=== PATIENT | female | born 1975 | race Caucasian/White ===

== ENCOUNTER 2023-11-26 19:49 | Emergency (ER) | payer OTHER ==
[~2023-11-26] VITALS: Ht 149.9 cm; Wt 68.0 kg
[~2023-11-26 19:49] MED LIST: Tamiflu75 MG PO
[2023-11-26 20:04] VITALS: BP 136/82
== END 2023-11-26 21:41 | disposition home or self-care (01) ==
LOC: ER 19:49
DX: S51.011A Laceration without foreign body of right elbow, initial encounter (principal); W10.1XXA Fall (on)(from) sidewalk curb, initial encounter; Z79.899 Other long term (current) drug therapy
CPT/HCPCS: 12001; 99283-25

== ENCOUNTER 2023-11-28 19:34 | Emergency (ER) | payer OTHER ==
[~2023-11-28] VITALS: Ht 149.9 cm; Wt 72.6 kg
[2023-11-28] MEDS ORDERED: FOLI1 PO (19:44)
[2023-11-28] MEDS ORDERED: Lamictal150 MG PO (19:44)
[2023-11-28] MEDS ORDERED: VITAMIN B-1100 M1 PO (19:44)
[2023-11-28] MEDS ORDERED: TRAZ50 PO (19:44)
[2023-11-28 21:00] VITALS: BP 140/83
[2023-11-28] MEDS ORDERED: PHENobarbital Sodium 65MG / ML 1ML Vial IM ONE (22:00)
[2023-11-29] MEDS ORDERED: GABA100 PO (07:58)
[2023-11-29] MEDS ORDERED: FLUO10 PO (07:58)
[2023-11-29] MEDS ORDERED: Naltrexone HCl50 MG (07:59)
[2023-11-29] MEDS ORDERED: ONDA4ODT MM (10:11)
[2023-11-29] MEDS ORDERED: CHLO25 PO (10:11)
== END 2023-11-28 22:35 | disposition home or self-care (01) ==
LOC: ER 19:34
DX: F10.239 Alcohol dependence with withdrawal, unspecified (principal); Z79.899 Other long term (current) drug therapy
CPT/HCPCS: 96372; 99285-25; J2560

== ENCOUNTER 2023-11-29 07:42 | Emergency (ER) | payer OTHER ==
[~2023-11-29] VITALS: Ht 149.9 cm; Wt 68.0 kg
[~2023-11-29 07:42] MED LIST changes: +FOLI1 PO; +Lamictal150 MG PO; +TRAZ50 PO; +VITAMIN B-1100 M1 PO
[2023-11-29] MEDS ORDERED: FLUO10 PO (07:58)
[2023-11-29] MEDS ORDERED: GABA100 PO (07:58)
[2023-11-29] MEDS ORDERED: Naltrexone HCl50 MG (07:59)
[2023-11-29] MEDS ORDERED: Ondansetron HCl 2 MG / ML 2ML Vial IV ONE (08:10)
[2023-11-29 08:24] LABS: BASOPHILS ABSOLUTE AUTO 0.05 K/mm3 (0.00-0.23); BASOPHILS PERCENT AUTO 0 % (0-2); EOSINOPHILS ABSOLUTE AUTO 0.01 K/mm3 (0.00-0.68); EOSINOPHILS PERCENT AUTO 0 % (0-6); Hematocrit 39.8 % (33.0-51.0); Hemoglobin 13.7 g/dL (11.5-16.0); IMMATURE GRAN ABSOLUTE AUTO 0.08 K/mm3 (0.00-0.10); IMMATURE GRAN PERCENT AUTO 1 % (0-1); LYMPHOCYTES ABSOLUTE AUTO 1.43 K/mm3 (0.84-5.20); LYMPHOCYTES PERCENT AUTO 12 % (21-46); MONOCYTES ABSOLUTE AUTO 0.71 K/mm3 (0.16-1.47); MONOCYTES PERCENT AUTO 6 % (4-13); Mean Corpuscular HGB 30.9 pg (26.0-34.0); Mean Corpuscular HGB Conc 34.4 g/dL (31.5-36.5); Mean Corpuscular Volume 90 fL (80-100); Mean Platelet Volume 9.2 fL (9.1-12.4); NEUTROPHILS ABSOLUTE AUTO 9.73 K/mm3 (1.96-9.15); NEUTROPHILS PERCENT AUTO 81 % (41-73); Platelet Count 347 K/mm3 (150-400); RDW Coefficient Variation 13.2 % (11.7-14.2); RDW Standard Deviation 44.2 fL (35.1-46.3); Red Blood Cell Count 4.43 M/mm3 (3.80-5.20); White Blood Cell Count 12.01 K/mm3 (4.00-11.30)
[2023-11-29] MEDS ORDERED: LORazepam 2 MG/ML 1ML Injection IV ONE (08:30)
[2023-11-29] MEDS ORDERED: Prochlorperazine Edisylate 10 mg Vial IV ONE (08:30)
[2023-11-29] MEDS ORDERED: NS 1,000 ML IV SCH (08:30)
[2023-11-29 08:44] LABS: Albumin, Blood 3.6 g/dL (3.4-5.0); Albumin/Globulin Ratio 0.9 (0.8-1.8); Bun/Creatinine Ratio 21.5 (12.0-20.0); Calcium, Blood 9.3 mg/dL (8.5-10.1); Creatinine, Blood 0.47 mg/dL (0.40-1.00); Globulin, Blood 4.2 g/dL (2.2-4.0); Potassium, Blood 3.1 mmol/L (3.5-5.5); Total Protein, Blood 7.8 g/dL (6.4-8.2)
[2023-11-29] MEDS ORDERED: Potassium Chloride 20 MEQ TabCR PO ONE (08:50)
[2023-11-29] MEDS ORDERED: ChlordiazePOXIDE 25 MG Cap PO ONE (09:25)
[2023-11-29] MEDS ORDERED: CHLO25 PO (10:11)
[2023-11-29] MEDS ORDERED: ONDA4ODT MM (10:11)
[2023-11-29 10:15] VITALS: BP 131/82
== END 2023-11-29 10:31 | disposition home or self-care (01) ==
LOC: ER 07:42
PROVIDERS: Emergency Medicine
DX: F10.239 Alcohol dependence with withdrawal, unspecified (principal); E87.6 Hypokalemia; Z79.899 Other long term (current) drug therapy
CPT/HCPCS: 80053; 80320; 85025; 96374; 96375; 99285-25; A9270; J0780; J2060; J2405; J7030

== ENCOUNTER 2024-02-19 10:32 | Emergency (ER) | payer OTHER ==
[~2024-02-19] VITALS: Ht 149.9 cm; Wt 65.8 kg
[~2024-02-19 10:32] MED LIST changes: +CHLO25 PO; +FLUO10 PO; +GABA100 PO; +Naltrexone HCl50 MG; +ONDA4ODT MM
[2024-02-19 10:59] LABS: BASOPHILS ABSOLUTE AUTO 0.04 K/mm3 (0.00-0.23); BASOPHILS PERCENT AUTO 1 % (0-2); EOSINOPHILS ABSOLUTE AUTO 0.06 K/mm3 (0.00-0.68); EOSINOPHILS PERCENT AUTO 1 % (0-6); Hemoglobin 14.4 g/dL (11.5-16.0); IMMATURE GRAN ABSOLUTE AUTO 0.02 K/mm3 (0.00-0.10); IMMATURE GRAN PERCENT AUTO 0 % (0-1); LYMPHOCYTES ABSOLUTE AUTO 2.45 K/mm3 (0.84-5.20); LYMPHOCYTES PERCENT AUTO 33 % (21-46); MONOCYTES PERCENT AUTO 8 % (4-13); Mean Corpuscular HGB 30.8 pg (26.0-34.0); Mean Corpuscular HGB Conc 33.5 g/dL (31.5-36.5); Mean Corpuscular Volume 92 fL (80-100); Mean Platelet Volume 8.6 fL (9.1-12.4); NEUTROPHILS ABSOLUTE AUTO 4.16 K/mm3 (1.96-9.15); NEUTROPHILS PERCENT AUTO 57 % (41-73); Platelet Count 414 K/mm3 (150-400); RDW Coefficient Variation 14.4 % (11.7-14.2); RDW Standard Deviation 48.2 fL (35.1-46.3); Red Blood Cell Count 4.67 M/mm3 (3.80-5.20); White Blood Cell Count 7.33 K/mm3 (4.00-11.30)
[2024-02-19 11:23] LABS: Albumin, Blood 3.5 g/dL (3.4-5.0); Albumin/Globulin Ratio 0.8 (0.8-1.8); Bilirubin, Total 0.4 mg/dL (0.1-1.0); Bun/Creatinine Ratio 21.1 (12.0-20.0); Calcium, Blood 9.9 mg/dL (8.5-10.1); Creatinine, Blood 0.62 mg/dL (0.40-1.00); Globulin, Blood 4.5 g/dL (2.2-4.0); Potassium, Blood 4.3 mmol/L (3.5-5.5)
[2024-02-19] MEDS ORDERED: Ketorolac Tromethamine 15mg Vial IV ONE (14:45)
[2024-02-19 16:09] VITALS: BP 108/52
== END 2024-02-19 16:12 | disposition home or self-care (01) ==
LOC: ER 10:32
PROVIDERS: Physician Assistant
DX: M94.0 Chondrocostal junction syndrome [Tietze] (principal); Z79.899 Other long term (current) drug therapy
CPT/HCPCS: 71046; 80053; 82947; 84484; 85025; 93005; 93010; 96374; 99284-25; J1885

== ENCOUNTER → 2024-07-02 | Outpatient (CLI) | payer OTHER ==
[~2024-07-02] MED LIST changes: +OMEP20ER PO; +ONDA4 PO
== END ==
LOC: LAB 16:28 → LAB SHORT 16:28
DX: R31.9 Hematuria, unspecified (principal)
CPT/HCPCS: 87086

== ENCOUNTER 2024-07-05 21:26 | Emergency (ER) | payer OTHER ==
[~2024-07-05] VITALS: Ht 149.9 cm; Wt 65.8 kg
[~2024-07-05 21:26] MED LIST changes: -OMEP20ER PO; -ONDA4 PO
[2024-07-05 22:44] LABS: BASOPHILS ABSOLUTE AUTO 0.04 K/mm3 (0.00-0.23); BASOPHILS PERCENT AUTO 0 % (0-2); EOSINOPHILS ABSOLUTE AUTO 0.04 K/mm3 (0.00-0.68); EOSINOPHILS PERCENT AUTO 0 % (0-6); Hematocrit 45.3 % (33.0-51.0); Hemoglobin 15.3 g/dL (11.5-16.0); IMMATURE GRAN ABSOLUTE AUTO 0.04 K/mm3 (0.00-0.10); IMMATURE GRAN PERCENT AUTO 0 % (0-1); LYMPHOCYTES ABSOLUTE AUTO 3.62 K/mm3 (0.84-5.20); LYMPHOCYTES PERCENT AUTO 30 % (21-46); MONOCYTES ABSOLUTE AUTO 0.57 K/mm3 (0.16-1.47); MONOCYTES PERCENT AUTO 5 % (4-13); Mean Corpuscular HGB 29.3 pg (26.0-34.0); Mean Corpuscular HGB Conc 33.8 g/dL (31.5-36.5); Mean Corpuscular Volume 87 fL (80-100); Mean Platelet Volume 8.6 fL (9.1-12.4); NEUTROPHILS ABSOLUTE AUTO 7.89 K/mm3 (1.96-9.15); NEUTROPHILS PERCENT AUTO 65 % (41-73); Platelet Count 362 K/mm3 (150-400); RDW Coefficient Variation 12.7 % (11.7-14.2); Red Blood Cell Count 5.23 M/mm3 (3.80-5.20)
[2024-07-05 23:07] LABS: Albumin, Blood 4.3 g/dL (3.4-5.0); Bilirubin, Total 0.3 mg/dL (0.1-1.0); Bun/Creatinine Ratio 17.9 (12.0-20.0); Calcium, Blood 9.6 mg/dL (8.5-10.1); Creatinine, Blood 0.67 mg/dL (0.40-1.00); Globulin, Blood 4.4 g/dL (2.2-4.0); Potassium, Blood 3.5 mmol/L (3.5-5.5); Total Protein, Blood 8.7 g/dL (6.4-8.2)
[2024-07-05 23:28] LABS: Source, Urine Clean Catch
[2024-07-05 23:40] LABS: Bilirubin, Urine Neg (Neg); Blood, Urine 3+ (Neg); Glucose Qualitative, Urine Neg (Neg); Ketones, Urine Neg (Neg); Leukocyte Esterase, Urine 1+ (Neg); Nitrite, Urine Neg (Neg); Protein, Urine Neg (Neg); Specific Gravity, Urine 1.015 (1.003-1.022); Urobilinogen, Urine NORM (Normal)
[2024-07-05 23:48] LABS: Appearance, Urine Clear (Clear); Color, Urine Yellow (P-Yellow)
[2024-07-05 23:50] LABS: Amorphous Light (0-Heavy); Bacteria Mod /hpf; Red Blood Cells, Urine 0-2 /hpf (0-2); Squamous Epithelial Cells Mod /hpf (Few)
[2024-07-05] MEDS ORDERED: NS 1,000 ML IV SCH (23:50)
[2024-07-05] MEDS ORDERED: CefTRIAXone Sodium 1,000 MG in NS 100 ML IV ONE (23:55)
[2024-07-05] MEDS ORDERED: Ondansetron HCl 2 MG / ML 2ML Vial IV ONE (23:55)
[2024-07-05] MEDS ORDERED: Ketorolac Tromethamine 15mg Vial IV ONE (23:55)
[2024-07-06 00:05] VITALS: BP 119/76
[2024-07-06] MEDS ORDERED: Pantoprazole Sodium 40 MG Injection IV ONE (01:20)
[2024-07-06] MEDS ORDERED: OMEP20ER PO (01:22)
[2024-07-06] MEDS ORDERED: ONDA4 PO (01:22)
== END 2024-07-06 01:34 | disposition home or self-care (01) ==
LOC: ER 21:26
PROVIDERS: Student in an Organized Health Care Education/Training Program
DX: K30 Functional dyspepsia (principal); Z79.899 Other long term (current) drug therapy
CPT/HCPCS: 36415; 71046; 74176; 80053; 81001; 83605; 83690; 84484; 84703; 85025; 87040; 87086; 93005; 93010; 96365; 96375; 99285; J0696; J1885; J2405; J2470; J7030

== ENCOUNTER 2024-07-11 18:41 | Inpatient (IN) | payer OTHER ==
[~2024-07-11] VITALS: Ht 149.9 cm; Wt 73.3 kg
[~2024-07-11 18:41] MED LIST changes: +OMEP20ER PO; +ONDA4 PO
[2024-07-11] MEDS ORDERED: HYDROmorphone HCl/Pf 1MG SYR IV ONE ×2 (19:45→21:40)
[2024-07-11] MEDS ORDERED: Ondansetron HCl 2 MG / ML 2ML Vial IV ONE ×2 (19:45→21:40)
[2024-07-11] MEDS ORDERED: Lactated Ringer's 1,000 ML IV ONE (19:50)
[2024-07-11 20:16] LABS: BASOPHILS ABSOLUTE AUTO 0.02 K/mm3 (0.00-0.23); BASOPHILS PERCENT AUTO 0 % (0-2); EOSINOPHILS ABSOLUTE AUTO 0.01 K/mm3 (0.00-0.68); EOSINOPHILS PERCENT AUTO 0 % (0-6); Hematocrit 44.3 % (33.0-51.0); Hemoglobin 14.9 g/dL (11.5-16.0); IMMATURE GRAN ABSOLUTE AUTO 0.05 K/mm3 (0.00-0.10); IMMATURE GRAN PERCENT AUTO 0 % (0-1); LYMPHOCYTES ABSOLUTE AUTO 1.66 K/mm3 (0.84-5.20); LYMPHOCYTES PERCENT AUTO 14 % (21-46); MONOCYTES ABSOLUTE AUTO 0.67 K/mm3 (0.16-1.47); MONOCYTES PERCENT AUTO 6 % (4-13); Mean Corpuscular HGB 29.7 pg (26.0-34.0); Mean Corpuscular HGB Conc 33.6 g/dL (31.5-36.5); Mean Corpuscular Volume 88 fL (80-100); Mean Platelet Volume 8.6 fL (9.1-12.4); NEUTROPHILS ABSOLUTE AUTO 9.86 K/mm3 (1.96-9.15); NEUTROPHILS PERCENT AUTO 80 % (41-73); Platelet Count 365 K/mm3 (150-400); RDW Coefficient Variation 13.4 % (11.7-14.2); RDW Standard Deviation 42.9 fL (35.1-46.3); Red Blood Cell Count 5.01 M/mm3 (3.80-5.20); White Blood Cell Count 12.27 K/mm3 (4.00-11.30)
[2024-07-11 20:28] LABS: Source, Urine Clean Catch
[2024-07-11 20:36] LABS: Blood, Urine 3+ (Neg); Glucose Qualitative, Urine Neg (Neg); Ketones, Urine 1+ (Neg); Leukocyte Esterase, Urine 1+ (Neg); Nitrite, Urine Neg (Neg); Protein, Urine 2+ (Neg); Specific Gravity, Urine 1.025 (1.003-1.022); Urobilinogen, Urine 1+ (Normal)
[2024-07-11 20:39] LABS: Albumin, Blood 3.8 g/dL (3.4-5.0); Albumin/Globulin Ratio 0.9 (0.8-1.8); Bilirubin, Total 0.6 mg/dL (0.1-1.0); Bun/Creatinine Ratio 24.7 (12.0-20.0); Calcium, Blood 9.9 mg/dL (8.5-10.1); Creatinine, Blood 0.65 mg/dL (0.40-1.00); Globulin, Blood 4.1 g/dL (2.2-4.0); Total Protein, Blood 7.9 g/dL (6.4-8.2)
[2024-07-11 20:41] LABS: Appearance, Urine Clear (Clear); Bilirubin, Urine 1+ (Neg); Color, Urine Yellow (P-Yellow)
[2024-07-11 20:42] LABS: Bacteria Many /hpf; Granular Casts 0-2 /lpf (0); Mucus Mod (0-Heavy); Squamous Epithelial Cells Mod /hpf (Few)
[2024-07-11 22:52] LABS: Source, Urine Straight Cath
[2024-07-11 22:55] LABS: Bilirubin, Urine Neg (Neg); Blood, Urine 4+ (Neg); Glucose Qualitative, Urine Neg (Neg); Ketones, Urine Neg (Neg); Leukocyte Esterase, Urine 1+ (Neg); Nitrite, Urine Neg (Neg); Protein, Urine 1+ (Neg); Urobilinogen, Urine NORM (Normal)
[2024-07-11 23:00] LABS: Appearance, Urine Clear (Clear); Color, Urine Yellow (P-Yellow)
[2024-07-11 23:01] LABS: Amorphous Light (0-Heavy); Bacteria Rare /hpf; Hyaline Casts 0-2 /lpf (0-2); Red Blood Cells, Urine 0-2 /hpf (0-2); Squamous Epithelial Cells Rare /hpf (Few)
[2024-07-12 00:56] VITALS: BP 135/99
[2024-07-12] MEDS ORDERED: NS 1,000 ML IV ONE (01:00)
[2024-07-12] MEDS ORDERED: Ondansetron HCl 2 MG / ML 2ML Vial IV PRN (01:00)
[2024-07-12] MEDS ORDERED: FentaNYL Citrate 50 MCG/ML 2 ML Injection IV PRN ×2 (01:00→10:40)
--- NOTE | 2024-07-12 01:30 | NUR ---
ARRIVAL TO MEDICAL FLOOR ROOM 226. PT ARRIVED TO UNIT WHILE THIS RN WAS ON BREAK. REPORT RECEIVED FROM BREAK RN MARIA ISABEL العلي. PT A/OX4, RATES PAIN 8/10 IN GENERALIZED ABDOMINAL REGION. PT DENIES IGNITION SOURCES PRESENT ON PERSON. ORIENTED TO ROOM AND CALL LIGHT.
[2024-07-12 02:12] VITALS: BP 130/92
--- NOTE | 2024-07-12 04:04 | NUR ---
HOSPITALIST ROUND. DR. MASCORRO ROUNDED ON PATIENT. THIS RN BROUGHT UP CONCERN FOR PAIN CONTROL IV FENT 25-50 MCG HAS BEEN EFFECTIVE BUT DOES NOT LAST LONG. NEW ORDERS RECEIVED FOR DILAUDID 1-2MG IV ROUTE Q6 HOURS PRN FOR BREAKTHROUGH.
[2024-07-12] MEDS ORDERED: HYDROmorphone HCl/Pf 1MG SYR IV PRN (04:10)
[2024-07-12 05:25] LABS: BASOPHILS ABSOLUTE AUTO 0.02 K/mm3 (0.00-0.23); BASOPHILS PERCENT AUTO 0 % (0-2); EOSINOPHILS ABSOLUTE AUTO 0.04 K/mm3 (0.00-0.68); EOSINOPHILS PERCENT AUTO 0 % (0-6); Hematocrit 43.1 % (33.0-51.0); Hemoglobin 14.3 g/dL (11.5-16.0); IMMATURE GRAN ABSOLUTE AUTO 0.03 K/mm3 (0.00-0.10); IMMATURE GRAN PERCENT AUTO 0 % (0-1); LYMPHOCYTES ABSOLUTE AUTO 1.77 K/mm3 (0.84-5.20); LYMPHOCYTES PERCENT AUTO 15 % (21-46); MONOCYTES ABSOLUTE AUTO 0.77 K/mm3 (0.16-1.47); MONOCYTES PERCENT AUTO 7 % (4-13); Mean Corpuscular HGB 29.7 pg (26.0-34.0); Mean Corpuscular HGB Conc 33.2 g/dL (31.5-36.5); Mean Corpuscular Volume 89 fL (80-100); Mean Platelet Volume 8.7 fL (9.1-12.4); NEUTROPHILS PERCENT AUTO 77 % (41-73); Platelet Count 326 K/mm3 (150-400); RDW Coefficient Variation 13.6 % (11.7-14.2); RDW Standard Deviation 44.4 fL (35.1-46.3); Red Blood Cell Count 4.82 M/mm3 (3.80-5.20); White Blood Cell Count 11.63 K/mm3 (4.00-11.30)
[2024-07-12 05:49] LABS: Albumin, Blood 3.4 g/dL (3.4-5.0); Bilirubin, Total 0.6 mg/dL (0.1-1.0); Bun/Creatinine Ratio 24.5 (12.0-20.0); Calcium, Blood 9.3 mg/dL (8.5-10.1); Creatinine, Blood 0.49 mg/dL (0.40-1.00); Globulin, Blood 3.5 g/dL (2.2-4.0); Potassium, Blood 3.3 mmol/L (3.5-5.5); Total Protein, Blood 6.9 g/dL (6.4-8.2)
[2024-07-12] MEDS ORDERED: ChlordiazePOXIDE 25 MG Cap PO PRN (06:20)
[2024-07-12] MEDS ORDERED: TraZODone HCl 50 MG Tab PO PRN (06:25)
[2024-07-12] MEDS ORDERED: Potassium Chloride 40 MEQ in NS 250 ML IV ONE (06:45)
[2024-07-12 07:40] VITALS: BP 141/84
--- NOTE | 2024-07-12 07:52 | NUR ---
SHIFT SUMMARY NOC. PT ADMITTED FOR ENTERITIS, ABDOMINAL PAIN, AND N/V. PT HAS HAD NO EMESIS SINCE ARRIVAL TO FLOOR. PT C/O ABDOMINAL PAIN AND HAD TEMPORARY RELIEF WITH FENT 25MCG. SEE NOTE FOR NEW ORDER OF DILAUDID PRN. PT RECEIVED FENT X2 SINCE ARRIVAL TO FLOOR. TELEMETRY MONITORING INTACT AND NO REPORTED EVENTS SINCE ARRIVAL. GI SAMPLE TO BE OBTAINED AND INFORMED NURSE CAN FEEDER AND ONCOMING RN TO COLLECT WHEN ABLE. PT MAKES NEEDS KNOWN, CALL LIGHT IN REACH.
[2024-07-12] MEDS ORDERED: Enoxaparin 40 MG/0.4 ML SYR SC SCH (09:00)
[2024-07-12] MEDS ORDERED: FLUoxetine HCL 20 MG CAP PO SCH (09:00)
[2024-07-12] MEDS ORDERED: Prochlorperazine Edisylate 10 mg Vial IV PRN (10:40)
[2024-07-12 11:31] VITALS: BP 109/67
[2024-07-12 15:24] VITALS: BP 109/69
--- NOTE | 2024-07-12 18:35 | NUR ---
SHIFT SUMMARY: PATIENT AOX4. 1 PERSON ASSIST, OVERALL WEAKNESS DUE TO PAIN. PATIENT C/O PAIN 8/10, TREATED PER APR. PATIENT REPORTED DILAUDED WAS VERY EFFECTIVE FOR HER PAIN AND UPON REASSESSMENT REPORTED PAIN OF 5/10. PATIENT HAS BEEN SLEEPING INTERMITTENTLY THROUGHOUT THE DAY. NO ACUTE EVENTS, PATIENT ASLEEP WITH CALL LIGHT WITHIN REACH.
--- NOTE | 2024-07-12 18:45 | NUR ---
THIS MANAGER ACTION ACCEPTED A CALL FROM [facility] TO REPORT ON PATIENT AT 1225. [facility] REQUESTS TO CALL BEFORE PATIENT DISCHARGE SO THEY CAN ARRANGE TRANSPORT FOR HER. NO SPECIFIC PROTOCOL OR TESTING REQUIRED FOR DISCHARGE TO [facility] INPATIENT PROGRAM.
[2024-07-12 19:47] VITALS: BP 132/85
[2024-07-12] MEDS ORDERED: Gabapentin 300 MG Cap PO SCH (21:00)
[2024-07-12] MEDS ORDERED: LamoTRIgine 100 MG Tab PO SCH (21:00)
[2024-07-13] VITALS: BP 115/67
[2024-07-13 04:30] VITALS: BP 109/69
--- NOTE | 2024-07-13 05:15 | NUR ---
SHIFT SUMMARY: PT AOX4 SBA/ 1PA TO THE BATHROOM. NO BM THIS EVENING. ONLY ONE SMALL VOID AT BEGINNING OF SHIFT. STILL COMPLAINTS OF PAIN AND NAUSEA. NO VOMITING REPORTED. K PAD OFFERED BUT HASNT SEEMED TO HELP. COMPAZINE HAS WORKED FOR A TIME BUT DOESN'T PROVIDE FULL COVERAGE. IS IND IN THE BED AND COOPERATIVE IN CARE. CALLS APPROPRIATELY AND IS ABLE TO MAKE NEEDS KNOWN. NO ACUTE OVERNIGHT EVENTS. PT IN BED RESTING. BED IN LOWEST POSITION, CALL LIGHT IN REACH. CONTINUING CARE.
[2024-07-13 05:56] LABS: BASOPHILS ABSOLUTE AUTO 0.03 K/mm3 (0.00-0.23); BASOPHILS PERCENT AUTO 0 % (0-2); EOSINOPHILS ABSOLUTE AUTO 0.04 K/mm3 (0.00-0.68); EOSINOPHILS PERCENT AUTO 1 % (0-6); Hematocrit 37.9 % (33.0-51.0); Hemoglobin 12.6 g/dL (11.5-16.0); IMMATURE GRAN ABSOLUTE AUTO 0.02 K/mm3 (0.00-0.10); IMMATURE GRAN PERCENT AUTO 0 % (0-1); LYMPHOCYTES ABSOLUTE AUTO 2.34 K/mm3 (0.84-5.20); LYMPHOCYTES PERCENT AUTO 29 % (21-46); MONOCYTES ABSOLUTE AUTO 0.54 K/mm3 (0.16-1.47); MONOCYTES PERCENT AUTO 7 % (4-13); Mean Corpuscular HGB 29.4 pg (26.0-34.0); Mean Corpuscular HGB Conc 33.2 g/dL (31.5-36.5); Mean Corpuscular Volume 89 fL (80-100); Mean Platelet Volume 8.7 fL (9.1-12.4); NEUTROPHILS PERCENT AUTO 63 % (41-73); Platelet Count 317 K/mm3 (150-400); RDW Coefficient Variation 13.3 % (11.7-14.2); RDW Standard Deviation 43.2 fL (35.1-46.3); Red Blood Cell Count 4.28 M/mm3 (3.80-5.20); White Blood Cell Count 7.97 K/mm3 (4.00-11.30)
[2024-07-13] MEDS ORDERED: Omeprazole 20 MG CapCR PO SCH (06:00)
[2024-07-13 06:18] LABS: Bun/Creatinine Ratio 19.1 (12.0-20.0); Calcium, Blood 8.4 mg/dL (8.5-10.1); Creatinine, Blood 0.52 mg/dL (0.40-1.00); Potassium, Blood 3.6 mmol/L (3.5-5.5)
[2024-07-13 07:13] VITALS: BP 106/61
--- NOTE | 2024-07-13 09:33 | NUR ---
0930- VERBAL FROM MD PASCUAL FOR NS AT 75ML/HR CONTINUOUSLY AND PLACE PT ON CLEAR LIQUID DIET.
[2024-07-13] MEDS ORDERED: NS 1,000 ML IV SCH (09:35)
[2024-07-13 11:48] VITALS: BP 102/61
[2024-07-13] MEDS ORDERED: QUET100 PO (12:26)
[2024-07-13] MEDS ORDERED: PRAZ2 PO (12:26)
[2024-07-13 15:34] VITALS: BP 113/60
--- NOTE | 2024-07-13 18:38 | NUR ---
SUMMARY- PT AAOX4. ON RA. SBA. PT TOLERATING CLEAR LIQUID DIET. PT HAS EATEN ABOUT 20% OF LUNCH AND DINNER. PT DENIES EMESIS THIS SHIFT. PT STATES SHE IS PASSING GAS. PT'S PAIN WELL CONTROLLED WITH EMAR PAIN MEDS. PT HAS SLEPT MOST OF THE SHIFT AND HAS ONLY GOTTEN OOB TO USE THE BATHROOM.
[2024-07-13 20:11] VITALS: BP 117/65
[2024-07-14 00:33] VITALS: BP 109/67
[2024-07-14 04:25] VITALS: BP 135/71
--- NOTE | 2024-07-14 04:48 | NUR ---
PATIENT ALERT AND ORIENTED X4, SHE COMPLAINED OF SEVER PAIN AT 4.30AM, PAIN MED WAS GIVEN 2MG OF HYDROMORPHINE SLOWLY IV, RECIEVED OTHER DUE MED PRER EMAR, SLEPT WELL, RECIEVED DUE NURSING CARE, NORMAL SALINE 1000MLS IV INFUSION REPLACED STILL RUNING AT 75MLS PER HOUR CALL LIGHT IN REACH.
[2024-07-14 05:37] LABS: BASOPHILS ABSOLUTE AUTO 0.02 K/mm3 (0.00-0.23); BASOPHILS PERCENT AUTO 0 % (0-2); EOSINOPHILS ABSOLUTE AUTO 0.11 K/mm3 (0.00-0.68); EOSINOPHILS PERCENT AUTO 2 % (0-6); Hematocrit 36.6 % (33.0-51.0); Hemoglobin 12.3 g/dL (11.5-16.0); IMMATURE GRAN ABSOLUTE AUTO 0.01 K/mm3 (0.00-0.10); IMMATURE GRAN PERCENT AUTO 0 % (0-1); LYMPHOCYTES ABSOLUTE AUTO 2.23 K/mm3 (0.84-5.20); LYMPHOCYTES PERCENT AUTO 35 % (21-46); MONOCYTES ABSOLUTE AUTO 0.66 K/mm3 (0.16-1.47); MONOCYTES PERCENT AUTO 10 % (4-13); Mean Corpuscular HGB 30.1 pg (26.0-34.0); Mean Corpuscular HGB Conc 33.6 g/dL (31.5-36.5); Mean Corpuscular Volume 90 fL (80-100); Mean Platelet Volume 8.6 fL (9.1-12.4); NEUTROPHILS ABSOLUTE AUTO 3.29 K/mm3 (1.96-9.15); NEUTROPHILS PERCENT AUTO 52 % (41-73); Platelet Count 305 K/mm3 (150-400); RDW Standard Deviation 42.5 fL (35.1-46.3); Red Blood Cell Count 4.08 M/mm3 (3.80-5.20); White Blood Cell Count 6.32 K/mm3 (4.00-11.30)
[2024-07-14 06:05] LABS: Bun/Creatinine Ratio 12.8 (12.0-20.0); Creatinine, Blood 0.55 mg/dL (0.40-1.00); Potassium, Blood 3.5 mmol/L (3.5-5.5)
[2024-07-14 08:51] VITALS: BP 108/68
[2024-07-14 15:28] VITALS: BP 110/70
--- NOTE | 2024-07-14 16:23 | NUR ---
SHIFT SUMMARY PT IS A/Ox4. PLEASANT AND COOPERATIVE WITH CARE. HAS BEEN INDEPEDENT WITH AMBULATION AND ABLE TO MAKE NEEDS KNOWN WITH CALL LIGHT T/O SHIFT. PT HAD AN ABDOMINAL CT TODAY. PT IS CURRENTLY RESTING IN BED, WITH BED IN LOWEST POSITION AND CALL LIGHT IN REACH.
--- NOTE | 2024-07-14 18:01 | NUR ---
PLEASE REFER TO STUDENT NOTES FOR SHIFT SUMMARY THIS FLUID PUMP OPERATOR HAS REVIEWED AND AGREES.
[2024-07-14 19:15] VITALS: BP 121/67
[2024-07-15 02:47] VITALS: BP 117/62
--- NOTE | 2024-07-15 04:00 | NUR ---
SHIFT SUMMARY PATIENT HAD NO ACUTE CHANGES. ALERT ORIENTED AND INDEPENDENT IN ROOM. DENIES CHEST PAIN, SOB, AND N/V. VSS/AFEBRILE. REPORTED ABDOMEN PAIN X ONE AND IV DILADID 2 MG GIVEN PER EMAR. PIV INTACT. NS INFUSING @ 75 mL/HR. CALL LIGHT IN REACH. BED IN LOWEST POSITION. WILL CONTINUE TO MONITOR UNTIL DAY SHIFT NURSE ASSUMES CARE.
[2024-07-15 05:51] LABS: BASOPHILS ABSOLUTE AUTO 0.02 K/mm3 (0.00-0.23); BASOPHILS PERCENT AUTO 0 % (0-2); EOSINOPHILS ABSOLUTE AUTO 0.11 K/mm3 (0.00-0.68); EOSINOPHILS PERCENT AUTO 2 % (0-6); Hematocrit 35.2 % (33.0-51.0); Hemoglobin 12.1 g/dL (11.5-16.0); IMMATURE GRAN ABSOLUTE AUTO 0.02 K/mm3 (0.00-0.10); IMMATURE GRAN PERCENT AUTO 0 % (0-1); LYMPHOCYTES PERCENT AUTO 41 % (21-46); MONOCYTES ABSOLUTE AUTO 0.55 K/mm3 (0.16-1.47); MONOCYTES PERCENT AUTO 9 % (4-13); Mean Corpuscular HGB Conc 34.4 g/dL (31.5-36.5); Mean Corpuscular Volume 87 fL (80-100); Mean Platelet Volume 8.7 fL (9.1-12.4); NEUTROPHILS ABSOLUTE AUTO 2.74 K/mm3 (1.96-9.15); NEUTROPHILS PERCENT AUTO 47 % (41-73); Platelet Count 328 K/mm3 (150-400); RDW Coefficient Variation 13.1 % (11.7-14.2); RDW Standard Deviation 41.5 fL (35.1-46.3); Red Blood Cell Count 4.03 M/mm3 (3.80-5.20); White Blood Cell Count 5.84 K/mm3 (4.00-11.30)
[2024-07-15 06:24] LABS: Bun/Creatinine Ratio 7.8 (12.0-20.0); Calcium, Blood 9.1 mg/dL (8.5-10.1); Creatinine, Blood 0.51 mg/dL (0.40-1.00); Potassium, Blood 3.2 mmol/L (3.5-5.5)
[2024-07-15 07:22] VITALS: BP 133/78
[2024-07-15] MEDS ORDERED: Piperacillin/Tazobactam Sod 3.375 GM in NS 100 ML IV SCH (08:39)
[2024-07-15] MEDS ORDERED: Potassium Chloride 20 MEQ TabCR PO SCH (09:00)
[2024-07-15] MEDS ORDERED: Polyethylene Glycol 3350 17 gm PO PRN (12:25)
[2024-07-15] MEDS ORDERED: Docusate Sodium/Senna 1 Tab PO PRN (12:25)
[2024-07-15 16:11] VITALS: BP 134/86
--- NOTE | 2024-07-15 16:23 | NUR ---
NO ACUTE CHANGES THIS SHIFT. PT REPORTS THE ABDOMINAL PAIN HAS IMPROVED SINCE YESTERDAY AND DENIES N/V TODAY. PT REPORTED SHE HAD A BOWEL MOVEMENT THIS AFTERNOON. PT HAS BEEN REPORTING ABDOMINAL PAIN THROUGHOUT THE DAY RATING BETWEEN 4-6/10 AND HAS BEEN MEDICATED PER EMR. DENIES CP/PRESSURE OR SOB.
--- NOTE | 2024-07-15 17:29 | NUR ---
this rn has reviewed and does agree with student nurse documentation and summary note
[2024-07-15 19:10] VITALS: BP 127/60
[2024-07-16 04:38] VITALS: BP 120/75
--- NOTE | 2024-07-16 05:18 | NUR ---
SHIFT SUMM: PT IS AN A&OX4 49 YO FULL CODE ADMITTED FOR ENTERITIS. PT HAS BEEN MEDICATED FOR PAIN PER EMAR AND PAIN HAS BEEN KEPT AT MANAGEABLE LEVEL. PT IS ON CONT NS @75ML/HR. PT ON RA AND NO SOB.FULL LIQUID DIET TOLERATING WELL AND NO GI UPSET. PT IND IN ROOM AND WAS ABLE TO GET SOME RESTFUL SLEEP THIS SHIFT. PT CALLS TO MAKE NEEDS KNOWN AND HAS CALL LIGHT IN REACH.
[2024-07-16 05:53] LABS: BASOPHILS ABSOLUTE AUTO 0.02 K/mm3 (0.00-0.23); BASOPHILS PERCENT AUTO 0 % (0-2); EOSINOPHILS ABSOLUTE AUTO 0.16 K/mm3 (0.00-0.68); EOSINOPHILS PERCENT AUTO 3 % (0-6); Hematocrit 35.7 % (33.0-51.0); Hemoglobin 12.1 g/dL (11.5-16.0); IMMATURE GRAN ABSOLUTE AUTO 0.01 K/mm3 (0.00-0.10); IMMATURE GRAN PERCENT AUTO 0 % (0-1); LYMPHOCYTES ABSOLUTE AUTO 2.27 K/mm3 (0.84-5.20); LYMPHOCYTES PERCENT AUTO 41 % (21-46); MONOCYTES ABSOLUTE AUTO 0.57 K/mm3 (0.16-1.47); MONOCYTES PERCENT AUTO 10 % (4-13); Mean Corpuscular HGB 30.1 pg (26.0-34.0); Mean Corpuscular HGB Conc 33.9 g/dL (31.5-36.5); Mean Corpuscular Volume 89 fL (80-100); Mean Platelet Volume 8.7 fL (9.1-12.4); NEUTROPHILS ABSOLUTE AUTO 2.54 K/mm3 (1.96-9.15); NEUTROPHILS PERCENT AUTO 46 % (41-73); Platelet Count 340 K/mm3 (150-400); RDW Coefficient Variation 13.2 % (11.7-14.2); RDW Standard Deviation 42.7 fL (35.1-46.3); Red Blood Cell Count 4.02 M/mm3 (3.80-5.20); White Blood Cell Count 5.57 K/mm3 (4.00-11.30)
[2024-07-16 06:19] LABS: Bun/Creatinine Ratio 6.6 (12.0-20.0); Calcium, Blood 8.7 mg/dL (8.5-10.1); Creatinine, Blood 0.61 mg/dL (0.40-1.00); Potassium, Blood 3.7 mmol/L (3.5-5.5)
[2024-07-16 08:15] VITALS: BP 113/77
[2024-07-16] MEDS ORDERED: AMOCLA875 PO (10:00)
[2024-07-16] MEDS ORDERED: LAMO100 PO (10:02)
--- NOTE | 2024-07-16 10:25 | NUR ---
DISCHARGE INSTRUCTIONS REVIEWED WITH PATIENT AND PATIENT VERBALIZES UNDERSTANDING.WRITTEN OXYCODONE GIVEN TO PATIENT
--- NOTE | 2024-07-16 10:58 | NUR ---
PT DISCHARGED HOME VIA PRIVATE VEHICLE. ALL BELONGINGS WITH PT INCLUDING PAPER PRESCRIPTION. EDUCATION PROVIDED.
== END 2024-07-16 10:55 | disposition home or self-care (01) | DRG 392 ==
LOC: ER 18:41 → MEDS 18:42
PROVIDERS: Emergency Medicine; Internal Medicine; Student in an Organized Health Care Education/Training Program; ADMIT Internal Medicine
DX: K52.9 Noninfective gastroenteritis and colitis, unspecified (principal); F32.A Depression, unspecified; G47.30 Sleep apnea, unspecified; F10.11 Alcohol abuse, in remission; E86.0 Dehydration; G62.9 Polyneuropathy, unspecified; K21.9 Gastro-esophageal reflux disease without esophagitis; R10.84 Generalized abdominal pain; Z79.899 Other long term (current) drug therapy
CPT/HCPCS: 36415; 51701; 74019; 74177; 76705; 80048; 80053; 81001; 83605; 83690; 83880; 85025; 87086; 93005; 93010; 96365; 96366; 96372; 96374-59; 96375; 96375-59; 96376; 96376-59; 99285-25; A9270; G0378; J0780; J1171; J1650; J2405; J2543; J3010; J3480; J7030; J7050; J7120; Q9967